=== PATIENT | male | born 1965 | race Native Hawaiian/Other Pacific Islander ===

== ENCOUNTER 2018-06-04 08:15 | Outpatient (CLI) | payer OTHER ==
[~2018-06-04] VITALS: Ht 175.3 cm; Wt 81.2 kg
== END 2018-06-04 19:39 | disposition home or self-care (01) ==
LOC: NM 08:15
DX: I25.10 Atherosclerotic heart disease of native coronary artery without angina pectoris (principal); I42.9 Cardiomyopathy, unspecified
CPT/HCPCS: 93306; A9500; J2785

== ENCOUNTER 2021-01-31 08:59 | Outpatient (CLI) | payer OTHER | END 2021-01-31 21:06 | disposition home or self-care (01) | LOC: RESP 08:59 | PROVIDERS: ATTEND Specialist | DX: I42.8 Other cardiomyopathies (principal); I77.810 Thoracic aortic ectasia; I25.10 Atherosclerotic heart disease of native coronary artery without angina pectoris; I35.1 Nonrheumatic aortic (valve) insufficiency; I34.0 Nonrheumatic mitral (valve) insufficiency; I51.7 Cardiomegaly; I51.9 Heart disease, unspecified; I10 Essential (primary) hypertension ==

== ENCOUNTER 2021-02-03 08:03 | Outpatient (CLI) | payer OTHER ==
[~2021-02-03] VITALS: Ht 152.4 cm; Wt 68.0 kg
== END 2021-02-03 19:27 | disposition home or self-care (01) ==
LOC: NM 08:03
PROVIDERS: ATTEND Specialist
DX: I42.8 Other cardiomyopathies (principal); I25.10 Atherosclerotic heart disease of native coronary artery without angina pectoris; I10 Essential (primary) hypertension
CPT/HCPCS: A9500; J2785

== ENCOUNTER 2022-10-03 08:59 | Outpatient (CLI) | payer OTHER ==
[~2022-10-03] VITALS: Ht 175.3 cm; Wt 89.4 kg
== END 2022-10-03 18:54 | disposition home or self-care (01) ==
LOC: NM 08:59
PROVIDERS: ATTEND Nurse Practitioner
DX: Z01.810 Encounter for preprocedural cardiovascular examination (principal); I25.10 Atherosclerotic heart disease of native coronary artery without angina pectoris; I10 Essential (primary) hypertension
CPT/HCPCS: A9500; J2785